=== PATIENT | male | born 1975 | race Two or more races ===

== ENCOUNTER 2020-07-03 12:04 | Emergency (ER) | payer MEDICAID, OTHER ==
[~2020-07-03] VITALS: Ht 170.2 cm; Wt 79.4 kg
[2020-07-03 14:45] VITALS: BP 133/88
[2020-07-03] MEDS ORDERED: IBUPROFEN 800 MG TAB PO ONE (15:00)
== END 2020-07-03 16:40 | disposition home or self-care (01) ==
LOC: ER 12:04
DX: S92.002A Unspecified fracture of left calcaneus, initial encounter for closed fracture (principal); F17.210 Nicotine dependence, cigarettes, uncomplicated; V19.9XXA Pedal cyclist (driver) (passenger) injured in unspecified traffic accident, initial encounter; Y93.89 Activity, other specified; Y92.89 Other specified places as the place of occurrence of the external cause; Y99.8 Other external cause status
CPT/HCPCS: 29515; 73610

== ENCOUNTER 2021-02-02 16:13 | Emergency (ER) | payer MEDICAID ==
[~2021-02-02] VITALS: Ht 167.6 cm; Wt 79.4 kg
[2021-02-02 16:19] VITALS: BP 123/87
[2021-02-02] MEDS ORDERED: IBUPROFEN 800 MG TAB PO ONE (20:45)
[2021-02-02] MEDS ORDERED: ACETAMINOPHEN 500 MG TAB PO ONE (20:45)
== END 2021-02-02 20:54 | disposition home or self-care (01) ==
LOC: ER 16:13
DX: S63.91XA Sprain of unspecified part of right wrist and hand, initial encounter (principal); F17.210 Nicotine dependence, cigarettes, uncomplicated; V86.96XA Unspecified occupant of dirt bike or motor/cross bike injured in nontraffic accident, initial encounter; Y93.I9 Activity, other involving external motion; Y92.89 Other specified places as the place of occurrence of the external cause; Y99.8 Other external cause status
CPT/HCPCS: 73130

== ENCOUNTER 2021-08-13 08:04 | Emergency (ER) | payer MEDICAID ==
[~2021-08-13] VITALS: Ht 167.6 cm; Wt 77.1 kg
[2021-08-13] MEDS ORDERED: SODIUM CHLORIDE 0.9% 1,000 ML IV ONE (08:45)
[2021-08-13 09:12] LABS: Urine Bacteria NONE SEEN /hpf (None Seen); Urine Blood Negative /uL (Negative); Urine Specific Gravity 1.012 (1.001-1.035); Urine WBC <1 /hpf (0 - 3)
[2021-08-13 09:26] VITALS: BP 139/99
[2021-08-13 09:42] LABS: Basophils # (auto) 0.1 10 ^3/uL (0-0.2); Eosinophils # (auto) 0 10 ^3/uL (0-0.8); Eosinophils % (auto) 0.5 % (0.0-7.0); Nucleated Red Blood Cells % 0.1 %
[2021-08-13 09:43] LABS: Hematocrit 38.7 % (41.0-53.0); Hemoglobin 13.8 g/dL (13.5-17.5); Lymphocytes # (auto) 2.8 10 ^3/uL (0.4-5.4); Lymphocytes % (auto) 38.1 % (10.0-50.0); Mean Corpuscular Hemoglobin 34.3 pg (28.0-32.0); Mean Corpuscular Hgb Conc. 35.7 g/dL (32.0-36.0); Mean Corpuscular Volume 95.9 fL (80.0-100.0); Monocytes # (auto) 0.5 10 ^3/uL (0-1.3); Neutrophils # (auto) 3.9 10 ^3/uL (1.6-8.6); Neutrophils % (auto) 53.4 % (37.0-80.0); Red Blood Cells 4.03 10^6/uL (4.5-5.90); Red Cell Distribution Width 13.8 % (11.8-14.3); White Blood Cell 7.2 10^3/uL (4.4-10.8)
[2021-08-13 09:59] LABS: Calcium 8.4 mg/dL (8.5-10.1)
[2021-08-13 10:03] LABS: BUN/Creatinine Ratio 17.1
== END 2021-08-13 10:18 | disposition home or self-care (01) ==
LOC: ER 08:04
DX: T67.5XXA Heat exhaustion, unspecified, initial encounter (principal); F17.210 Nicotine dependence, cigarettes, uncomplicated; F12.10 Cannabis abuse, uncomplicated; X58.XXXA Exposure to other specified factors, initial encounter; Y93.89 Activity, other specified; Y92.89 Other specified places as the place of occurrence of the external cause; Y99.8 Other external cause status
CPT/HCPCS: 36415; 80048; 81001; 82550; 85025; 96360; 99283; J7030